=== PATIENT | female | born 1960 | race Two or more races ===

== ENCOUNTER → 2024-10-29 | Day surgery (SDC) | payer OTHER ==
[2024-10-22 09:32] LABS: HEMATOCRIT 39.7 % (36.0-45.00); MEAN CELL VOLUME 85.4 fL (80.00-100.00); MEAN CORPUSCULAR HGB CONC 32.8 g/dl (32.0-36.0); PLATELET COUNT 214 K/uL (150-450); RED BLOOD COUNT 4.65 M/uL (4.00-6.00); RED CELL DISTRIBUTION WIDTH 14.1 % (11.5-14.5)
[2024-10-22 09:36] LABS: URINE APPEARANCE Clear; URINE BILIRRUBIN Negative (NEGATIVE); URINE BLOOD Negative; URINE COLOR Dark Yellow; URINE GLUCOSE Negative (NEGATIVE); URINE KETONE Trace (NEGATIVE); URINE LEUKOCYTE Small; URINE NITRATE Negative; URINE PROTEIN Trace (NEGATIVE)
[2024-10-22 09:41] LABS: URINE BACTERIA 137.3 uL (0.0-1933); URINE CAST 1.22 uL (0.0-1.40); URINE EPITHELIAL CELLS 16.6 uL (0.0-38.8); URINE RBC 2.5 uL (0.0-20.8); URINE WBC 16.5 uL (0.0-23.2)
[2024-10-22 10:17] LABS: INR 0.96; PARTIAL THROMBOPLASTIN TIME 32.3 SECONDS (22.0-34.0); PROTHROMBIN TIME 10.5 SECONDS (9.0-11.5)
[2024-10-22 10:26] LABS: BILIRUBIN TOTAL 0.57 mg/dL (0.3-1.2); CALCIUM 9.3 mg/dL (8.5-10.1); CREATININE SERUM 0.79 mg/dL (0.55-1.02); GFR 73.04; GLOBULINA 3.1 G/DL (2.4-3.5); POTASSIUM 3.76 mEq/L (3.5-5.1); TOTAL PROTEIN 7.1 gm/dL (6.4-8.2)
== END | disposition home or self-care (01) ==
LOC: ADM 10-22 07:45 → CIR.AMB 06:59
PROVIDERS: ATTEND Otolaryngology
DX: C01 Malignant neoplasm of base of tongue (principal); Z53.8 Procedure and treatment not carried out for other reasons